=== PATIENT | female | born 2000 | race Caucasian/White ===

== ENCOUNTER 2020-11-23 06:36 | Inpatient (IN) ==
[2020-11-23] MEDS ORDERED: D5 1/2 NS 1000 ML 1,000 ML IV SCH (06:45)
[2020-11-23] MEDS ORDERED: D5LR 1L W PITOCIN 10 UNITS/L 10 UNITS/1,000 ML BAG IV PRN (06:45)
[2020-11-23] MEDS ORDERED: D5 1/2 NS 1000 ML 1,000 ML IV ONE (06:51)
[2020-11-23] MEDS ORDERED: PITOCIN ONE (06:51)
[2020-11-23] MEDS ORDERED: BETADINE SOLN ONE ×2 (06:52→18:06)
[2020-11-23] MEDS ORDERED: D5 1/2 NS 1L W PITOCIN 20 UNITS/L 20 UNITS/1,000 ML BAG IV ONE (06:53)
[2020-11-23] MEDS ORDERED: D5LR 1L W PITOCIN 10 UNITS/L 10 UNITS/1,000 ML BAG IV ONE (06:53)
[2020-11-23 07:49] LABS: BILIRUBIN,URINE NEGATIVE (NEGATIVE); BLOOD/HEMOGLOBIN,URINE NEGATIVE (NEGATIVE); GLUCOSE, URINE NEGATIVE (NEGATIVE); KETONES,URINE NEGATIVE (NEGATIVE); LEUKOCYTE ESTERASE ,URINE NEGATIVE (NEGATIVE); NITRITES,URINE NEGATIVE (NEGATIVE); PH,URINE 6.5 (5.0 - 8.0); PROTEIN,URINE NEGATIVE (NEGATIVE); UROBILINOGEN,URINE NORMAL (NORMAL)
[2020-11-23 07:50] LABS: BASOPHILS % (AUTO) 0.3 % (0.2-1.0); EOSINOPHILS % (AUTO) 0.5 % (0.9-2.9); HEMATOCRIT 35.2 % (36.0-47.0); HEMOGLOBIN 12.1 g/dL (12.0-16.0); LYMPHOCYTES # (AUTO) 1.8 X10^3/uL (1.3-2.9); MEAN CORPUSCULAR HEMOGLOBIN 30.3 pg (27.0-34.0); MEAN CORPUSCULAR HGB CONC 34.3 g/dL (33.0-35.0); MEAN CORPUSCULAR VOLUME 88.2 fL (80.0-100.0); MONOCYTES # (AUTO) 0.5 x10^3/uL (0.3-0.8); MONOCYTES % (AUTO) 4.8 % (0.0-13.0); NEUTROPHILS # (AUTO) 7.6 x10^3/uL (2.2-4.8); NEUTROPHILS % (AUTO) 76.4 % (42.0-75.0); PLATELET COUNT 183 X10^3/uL (150.0-450.0); RED BLOOD COUNT 3.99 X10^6/uL (3.5-5.4); RED CELL DISTRIBUTION WIDTH 13.4 % (11.6-16.5)
[2020-11-23 07:57] LABS: BLOOD UREA NITROGEN 7 mg/dL (7-18); CALCIUM 9.1 mg/dL (8.5-10.1); CARBON DIOXIDE 24.4 mmol/L (21-32); CHLORIDE 103 mmol/L (98-107); SODIUM 139 mmol/L (136-145); eGFR NON BLACK RACES > 60 (>60)
[2020-11-23 07:59] LABS: APPEARANCE,URINE CLEAR (CLEAR); COLOR,URINE YELLOW (YELLOW)
[2020-11-23] MEDS ORDERED: MORPHINE SULFATE INJ 2 MG INJ IVP PRN (09:42)
[2020-11-23] MEDS ORDERED: PHENERGAN INJ 25 MG IM PRN ×2 (09:42→15:30)
[2020-11-23] MEDS ORDERED: PITOCIN IVP ONE (09:42)
[2020-11-23] MEDS ORDERED: REGLAN INJ 10 MG VIAL IVP PRN (09:42)
[2020-11-23] MEDS ORDERED: STADOL INJ ONE ×2 (10:06→12:13)
[2020-11-23] MEDS ORDERED: XYLOCAINE 1 % (PLAIN) ONE (13:46)
[2020-11-23] MEDS ORDERED: MOTRIN TAB 800 MG PO PRN ×2 (15:30→15:34)
[2020-11-23] MEDS: D5 1/2 NS 1000 ML 1,000 ML with PITOCIN 20 UNITS IV SCH ×2 (15:32)
[2020-11-23] MEDS ORDERED: AMBIEN PO PRN (15:34)
[2020-11-23] MEDS ORDERED: MILK OF MAGNESIA PO PRN (15:34)
[2020-11-23] MEDS ORDERED: DERMOPLAST PAIN RELIEF SPRAY TOP PRN (15:34)
[2020-11-24] MEDS: D5 1/2 NS 1000 ML 1,000 ML with PITOCIN 20 UNITS IV SCH ×2 (02:32)
[2020-11-24 06:57] LABS: HEMATOCRIT 31.8 % (36.0-47.0); HEMOGLOBIN 10.7 g/dL (12.0-16.0)
[2020-11-24] MEDS ORDERED: PRENATAL PLUS PO SCH (09:00)
[2020-11-24 12:32] VITALS: BP 115/64
== END 2020-11-24 14:00 | disposition home or self-care (01) | DRG 807 ==
LOC: LD 06:36 → OBS 16:04
PROVIDERS: ADMIT Obstetrics & Gynecology; ATTEND Obstetrics & Gynecology
DX: Z3A.39 39 weeks gestation of pregnancy; Z37.0 Single live birth; O70.0 First degree perineal laceration during delivery